=== PATIENT | male | born 1980 | race Caucasian/White ===

== ENCOUNTER 2017-03-27 00:17 | Emergency (ER) | payer OTHER ==
[2017-03-27 00:36] VITALS: BP 124/74
--- NOTE | 2017-03-27 00:52 | EDM.PDOC ---
ED HPI GENERAL MEDICAL PROBLEM - General Chief Complaint: Abdominal Pain Stated Complaint: abdominal pain Time Seen by Provider: 03/27/17 00:47 Source of Information: Reports: Patient History Limitations: Reports: No Limitations - History of Present Illness INITIAL COMMENTS - FREE TEXT/NARRATIVE: Patient is a 36-year-old male who was seen in the ER with chief complaint of abdominal discomfort both epigastric and hypogastric patient states that early this morning he had septal deviation surgery was sent home and on his way home started having lower abdominal discomfort he went back to the emergency room and was diagnosed with urinary retention a Simons catheter was placed and sent home patient now seen with generalized abdominal discomfort and lower abdominal pain Onset: Gradual Duration: Hour(s):, Getting Worse Location: Reports: Abdomen Quality: Reports: Pressure Severity: Mild Improves with: Reports: Rest Worsens with: Reports: Other (Activity) Context: Reports: Sick Contact Associated Symptoms: Reports: No Other Symptoms Right Upper Abdomen Pain Score (Numeric/FACES): 3 - Related Data Allergies Allergy/AdvReac Type Severity Reaction Status Date / Time Penicillins Allergy Itching Verified 05/15/15 09:04 Home Meds: Home Meds Acetaminophen [Acetaminophen Extra Strength] 1,000 mg PO Q6H PRN 03/27/17 [ History] SUMAtriptan Succinate [Imitrex] 100 mg PO ASDIRECTED 03/27/17 [History] Sennosides/Docusate Sodium [Senna-S] 1 tab PO BID 03/27/17 [History] oxyCODONE 5 mg PO Q4HR PRN 03/27/17 [History] Past Medical History Cardiovascular History: Reports: Heart Murmur - Past Surgical History GI Surgical History: Reports: Hernia, Inguinal Social & Family History - Tobacco Use Smoking Status *Q: Never Smoker - Recreational Drug Use Recreational Drug Use: No ED ROS GENERAL - Review of Systems Review Of Systems: See Below Constitutional: Reports: No Symptoms HEENT: Reports: No Symptoms Respiratory: Reports: No Symptoms Cardiovascular: Reports: No Symptoms Endocrine: Reports: No Symptoms GI/Abdominal: Reports: Distension : Reports: Urinary Retention Musculoskeletal: Reports: No Symptoms Skin: Reports: No Symptoms Neurological: Reports: No Symptoms Psychiatric: Reports: No Symptoms Hematologic/Lymphatic: Reports: No Symptoms Immunologic: Reports: No Symptoms ED EXAM, GENERAL - Physical Exam Exam: See Below Exam Limited By: No Limitations General Appearance: Anxious, Mild Distress Eye Exam: Bilateral Eye: Abnormal EOM, PERRL Ears: Normal External Exam, Normal Canal, Hearing Grossly Normal, Normal TMs Nose: Nasal Swelling, Nasal Drainage, Other (Status post nasal septum repair) Throat/Mouth: Normal Inspection, Normal Lips, Normal Teeth, Normal Gums, Normal Oropharynx, Normal Voice, No Airway Compromise Head: Atraumatic, Normocephalic Neck: Normal Inspection, Supple, Non-Tender, Full Range of Motion Respiratory/Chest: No Respiratory Distress, Lungs Clear, Normal Breath Sounds, No Accessory Muscle Use, Chest Non-Tender Cardiovascular: Normal Peripheral Pulses, Regular Rate, Rhythm, No Edema, No Gallop, No JVD, No Murmur, No Rub GI/Abdominal: Normal Bowel Sounds, Soft, Non-Tender, No Organomegaly, No Distention, No Abnormal Bruit, No Mass (Male) Exam: Circumcised, Other (Simons catheter) Rectal (Males) Exam: Deferred Back Exam: Normal Inspection, Full Range of Motion, NT Extremities: Normal Inspection, Normal Range of Motion, Non-Tender, Normal Capillary Refill, No Pedal Edema Neurological: Alert, Oriented, CN II-XII Intact, Normal Cognition, Normal Gait, Normal Reflexes, No Motor/Sensory Deficits Psychiatric: Normal Affect, Normal Mood Skin Exam: Warm, Dry, Intact, Normal Color, No Rash Course - Vital Signs Last Recorded V/S: Last Vital Signs Temp 97.6 F 03/27/17 00:35 Pulse 96 03/27/17 00:35 Resp 16 03/27/17 00:35 BP 124/74 03/27/17 00:35 Pulse Ox 99 03/27/17 00:35 Departure - Departure Time of Disposition: 01:04 Disposition: Home, Self-Care 01 Condition: Fair Clinical Impression: Abdominal pain Qualifiers: Abdominal location: epigastric Qualified Code(s): R10.13 - Epigastric pain - Discharge Information Forms: ED Department Discharge Care Plan Goals: At this time Simons catheter was removed patient should be able to urinate we'll keep him in the ER until urinating - Problem List & Annotations (1) Abdominal pain SNOMED Code(s): 74470153 Code(s): R10.9 - UNSPECIFIED ABDOMINAL PAIN Status: Acute Annotation/ Comment:: At this time Simons catheter be removed patient will be made to stay until voiding Qualifiers: Abdominal location: epigastric Qualified Code(s): R10.13 - Epigastric pain - Problem List Review Problem List Initiated/Reviewed/Updated: Yes
== END 2017-03-27 01:50 | disposition home or self-care (01) ==
LOC: LL.ED 00:17
DX: R10.13 Epigastric pain (principal); Z88.0 Allergy status to penicillin
CPT/HCPCS: 99284